=== PATIENT | female | born 1990 | race Hispanic/Latino ===

== ENCOUNTER 2021-06-24 18:23 | Emergency (ER) | payer OTHER ==
--- OUTSIDE RECORDS SUMMARY | 2021-06-24 18:27 | XMS REPORT | Continuity of Care Document ---
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 CELL HGB CONCETRATION 33.9 gram/dL 33.0-36.0 N (test code = MCHC) RED CELL DISTRIBUTION WIDTH 13.2 % 11.6-16.2 N (test code = RDW) PLATELET COUNT (test code = 293 K/mm3 150-450 N PLT) MEAN PLATELET VOLUME (test code 9.9 fL 6.7-11.0 N = MPV) - XR CHEST 1 [id number] 02:48:00 [facility])Name: KATHLEEN SCHAFER : 1990 Sex: F FAX: Josh Baugh [phone] [place]: B St: REG Name: KATHLEEN SCHAFER [facility] : 1990 Age/S: 29/F [address] [facility] Unit #: [id number] Loc: [place] [address] Phys: Josh Hameed MD Acct: [id number] Dis Date: Status: REG ER PHONE #: [phone] Exam Date: 02/29/2020 0236 FAX #: [phone] Reason: CHEST PAIN EXAMS: CPT CODE: [id number] XR CHEST 1V 45743 EXAM: - XR CHEST 1 V HISTORY: Chest pain. COMPARISON: March 07, 2019. FINDINGS: Single AP view of the chest is provided. Heart size and vascularity are within normal limits. There is no evidence of a focal consolidation. There is no pleural effusion or pneumothorax. There is no definite acute osseous abnormality. IMPRESSION: Noradiographic evidence of acute cardiopulmonary process. at 0248 Reported and signed by: Ludin Levin MD CC: Josh Hameed MD Technologist: RT [facility] Date/Time/By: 02/29/2020 (5282) : By: [email or web address] Orig Print D/T: S: 02/29/2020 (8218) PAGE 1 Signed ReportSTREPTOCOCCUS PCR [id number] 03:21:00 Test Item Value Reference Range Interpretation Comments STREPTOCOCCUS DYSGALACTIAE NEGATIVE FOR G/C NEGATIVE (test code = STREPGC) STREPA MOLECULAR (test NEGATIVE FOR GRP A NEGATIVE code = STREPAMOL) - XR CHEST 2 [id number] 23:32:00 FAX: Susy Coto [phone] [place]: St: REG Name: KATHLEEN SCHAFER [facility] : 1990 Age/S: 28/F [address] [facility] Unit#: [id number] Loc: [place] [address] Phys: Susy Madrid MD Acct: [id number] Dis Date: Status: REG ER PHONE #: [phone] Exam Date: 03/07/2019 2303 FAX #: [phone] Reason: cough EXAMS: CPT CODE: [id number] XR CHEST 2 V 12194 AFTER HOURS SERVICE ON: 03/07/2019 11:32 PM Chest, PA and Lateral Location Code M12 History: cough Findings: There are no infiltrates. There are no pleural effusions. There is no pneumothorax. Cardiac silhouette and mediastinum appear within normal limits. Impression: No active pulmonary findings. at 9252 Reported and signed by: Lissa Matias M.D. CC: Susy Madrid DMD Technologist: Karen Javier Trnscrd Date/Time/By: 03/07/2019 (3535) : By: [email or web address] Orig Print D/T: S: 03/07/2019 (6851) PAGE 1 Signed Report
[2021-06-24] MEDS ORDERED: ONDANSETRON 4 MG/2 ML VIAL ONE (21:27)
[2021-06-24] MEDS ORDERED: MORPHINE 4 MG/ML SYR ONE (21:27)
[2021-06-24 21:30] LABS: Urine Blood Negative (Negative); Urine Glucose Negative (Negative); Urine Protein Negative (Negative); Urine Specific Gravity 1.025 (1.005-1.030)
[2021-06-24 21:55] LABS: Absolute Lymphocytes (CBC) 4.1 K/uL (0.7-4.9); Hematocrit 43.2 % (36.0-45.0); Lymphocytes % 37.4 % (15.3-44.8); MPV 7.4 fL (7.6-11.3); RBC Red Blood Cell Count 4.71 M/uL (3.86-4.86)
[2021-06-24 22:03] LABS: Urine Specific Gravity/Preg 1.025 (1.005-1.030)
[2021-06-24 22:08] LABS: Potassium 3.6 mmol/L (3.5-5.1)
[2021-06-24 22:10] LABS: Urine Bacteria 20-50 /HPF (<20)
[2021-06-24 22:11] LABS: Urine Amorphous Sediment 1+ /HPF (NONE SEEN); Urine Urothelial Cells <5 /HPF (NONE SEEN)
[2021-06-24 22:12] LABS: Urine RBC <5 /HPF (NONE SEEN)
--- NOTE | 2021-06-24 22:31 | ER ---
Nurse's Notes [facility] Name: Shivani Mai Age: 30 yrs Sex: Female : 1990 Arrival Date: 06/24/2021 Time: 18:29 Bed 30 Private MD: Diagnosis: UTI/ Urinary tract infection, site not specified Presentation: 06/24 18:47 Chief complaint: Patient states: LLQ pain, pt reports that she is currently seeing PATROL GUARD for abnormal vaginal bleeding and pelvic pain, recently had MRI, US and biopsy, pain is worse today, states" I just can't take it. It's making me nauseous..". Coronavirus screen: Vaccine status: Patient reports receiving the 1st dose of the Covid vaccine. Ebola Screen: No symptoms or risks identified at this time. Initial Sepsis Screen: Does the patient meet any 2 criteria? No. Patient's initial sepsis screen is negative. Does the patient have a suspected source of infection? No. Patient's initial sepsis screen is negative. Risk Assessment: Do you want to hurt yourself or someone else? Patient reports no desire to harm self or others. Onset of symptoms was June 24, 2021. 18:47 Method Of Arrival: Ambulatory 18:47 Acuity: CAROLYN 3 ph Triage Assessment: 18:50 General: Appears in no apparent distress. uncomfortable, Behavior is cooperative, ph appropriate for age. Pain: Complains of pain in left lower quadrant. Historical: - Allergies: 18:50 No Known Allergies; ph - PSHx: 18:50 Cholecystectomy; section; Appendectomy; tubal ligation; ph - Immunization history:: Adult Immunizations unknown. - Social history:: Smoking status: Patient denies any tobacco usage or history of. Screenin:04 Abuse screen: Denies threats or abuse. Nutritional screening: No deficits noted. bb Tuberculosis screening: No symptoms or risk factors identified. Fall Risk None identified. Assessment: 21:04 General: Appears in no apparent distress. uncomfortable, Behavior is calm, cooperative. bb Pain: Complains of pain in abdomen Pain currently is 10 out of 10 on a pain scale. Neuro: Level of Consciousness is awake, alert, obeys commands, Oriented to person, place, time, situation. Cardiovascular: Capillary refill < 3 seconds Patient's skin is warm and dry. Respiratory: Respiratory effort is even, unlabored, Respiratory pattern is regular. GI: Abdomen is round Reports lower abdominal pain. Derm: Skin is pink, warm \\T\\ dry. 23:34 Reassessment: Patient is alert, oriented x 3, equal unlabored respirations, skin bb warm/dry/pink. pain is now 3/10 pt verbalized understanding of and agrees to plan of care discharge instructions given pt ambulated with steady gait to exit Patient states feeling better. Patient states symptoms have improved. Vital Signs: 18:51 BP 124 / 94; Pulse 102; Resp 18; Temp 97.5; Pulse Ox 99% on R/A; Weight 81.65 kg; ph Height 5 ft. 2 in. (157.48 cm); 21:04 BP 129 / 92; Pulse 103; Resp 16 S; Pulse Ox 100% on R/A; Pain 10/10; bb 23:35 BP 112 / 86; Pulse 93; Resp 16 S; Pulse Ox 100% on R/A; Pain 3/10; bb 18:51 Body Mass Index 32.92 (81.65 kg, 157.48 cm) ph ED Course: 18:29 Patient arrived in ED. ds1 18:50 Triage completed. ph 18:51 Arm band placed on Patient placed in waiting room, Patient notified of wait time. ph 21:04 Patient has correct armband on for positive identification. bb 21:06 Alexy Yen, BENJAMIN is PHCP. pm1 21:06 Sang Rocha MD is Attending Physician. pm1 21:33 Missed attempt(s): 20 gauge in right antecubital area. Bleeding controlled, band aid bb applied, catheter tip intact. 21:33 Initial lab(s) drawn, by al, sent to lab. Urine collected: clean catch specimen, clear. bb 21:35 Inserted saline lock: 20 gauge in left antecubital area, using aseptic technique. bb 21:39 Meron Walter, GROVER is Primary Nurse. bb 23:35 No provider procedures requiring assistance completed. IV discontinued, intact, bb bleeding controlled, No redness/swelling at site. Pressure dressing applied. Administered Medications: 21:35 Drug: morphine 4 mg {Note: RASS 0.} Route: IVP; Site: left antecubital; bb 22:30 Follow up: Response: No adverse reaction; Pain is decreased; RASS: Alert and Calm (0); bb RASS 0 21:38 Drug: Zofran (Ondansetron) 4 mg Route: IVP; Site: left antecubital; bb 22:30 Follow up: Response: No adverse reaction bb 23:25 Drug: Rocephin (cefTRIAXone) 1 grams Route: IV; Rate: calculated rate; Site: left antecubital; 23:38 Follow up: IV Status: Completed infusion bb Intake: Outcome: 22:30 Discharge ordered by MD. pm1 23:35 Discharged to home ambulatory. bb 23:35 Condition: stable 23:35 Discharge instructions given to patient, Instructed on discharge instructions, follow up and referral plans. no driving heavy equipment, medication usage, Demonstrated understanding of instructions, follow-up care, medications, Prescriptions given X 2. 23:38 Patient left the ED. bb Signatures: Darline Capps ds1 Meron Walter RN RN Lexi Loya RN RN ph Marinas, Patrick, BENJAMIN VISUAL MERCHANDISING SPECIALIST pm1
--- NOTE | 2021-06-24 22:31 | EDPHYS ---
Physician Documentation [facility] Name: Shivani Mai Age: 30 yrs Sex: Female : 1990 Arrival Date: 06/24/2021 Time: 18:29 Bed 30 Private MD: ED Physician Sang Rocha HPI: 06/24 21:16 This 30 yrs old Female presents to ER via Ambulatory with complaints of pm1 Ovarian Pain/Pelvic Pain. 21:16 The patient presents with pelvic pain. pm1 21:16 Onset: The symptoms/episode began/occurred last year. Modifying factors: The symptoms pm1 are alleviated by nothing, the symptoms are aggravated by nothing. Associated signs and symptoms: Pertinent negatives: diarrhea, dysuria, fever, nausea, vomiting. Severity of symptoms: in the emergency department the symptoms are actually worse. The patient has been recently seen by a physician: an senior manager mergers & acquisitions specialist, with similar presenting complaints, an ultrasound was done, and a MRI was done, biopsy. Historical: - Allergies: 18:50 No Known Allergies; ph - PSHx: 18:50 Cholecystectomy; section; Appendectomy; tubal ligation; ph - Immunization history:: Adult Immunizations unknown. - Social history:: Smoking status: Patient denies any tobacco usage or history of. ROS: 21:16 Positive for flank pain, Negative for burning with urination. pm1 21:16 Constitutional: Negative for fever, chills, and weight loss, Cardiovascular: Negative for chest pain, palpitations, and edema, Respiratory: Negative for shortness of breath, cough, wheezing, and pleuritic chest pain. 21:16 Back: Negative for injury and pain, : Negative for injury, bleeding, discharge, and swelling, MS/Extremity: Negative for injury and deformity, Skin: Negative for injury, rash, and discoloration, Neuro: Negative for headache, weakness, numbness, tingling, and seizure. 21:16 Abdomen/GI: Positive for abdominal pain, of the suprapubic area. 21:16 All other systems are negative. Exam: 21:16 Constitutional: This is a well developed, well nourished patient who is awake, alert, pm1 and in no acute distress. Head/Face: Normocephalic, atraumatic. 21:16 Back: No spinal tenderness. No costovertebral tenderness. Full range of motion. Skin: Warm, dry with normal turgor. Normal color with no rashes, no lesions, and no evidence of cellulitis. MS/ Extremity: Pulses equal, no cyanosis. Neurovascular intact. Full, normal range of motion. 21:16 Cardiovascular: Exam negative for acute changes, Rate: normal, Rhythm: regular, Pulses: no pulse deficits are appreciated, Heart sounds: normal. 21:16 Respiratory: Exam negative for acute changes, respiratory distress, shortness of breath, Breath sounds: are clear throughout. 21:16 Abdomen/GI: Inspection: abdomen appears normal, Palpation: soft, in all quadrants, mild abdominal tenderness, in the suprapubic area. 21:16 Neuro: Exam negative for acute changes, Orientation: is normal, Mentation: is normal, Motor: is normal, moves all fours. Vital Signs: 18:51 BP 124 / 94; Pulse 102; Resp 18; Temp 97.5; Pulse Ox 99% on R/A; Weight 81.65 kg; ph Height 5 ft. 2 in. (157.48 cm); 21:04 BP 129 / 92; Pulse 103; Resp 16 S; Pulse Ox 100% on R/A; Pain 10/10; bb 23:35 BP 112 / 86; Pulse 93; Resp 16 S; Pulse Ox 100% on R/A; Pain 3/10; bb 18:51 Body Mass Index 32.92 (81.65 kg, 157.48 cm) ph MDM: 21:15 Patient medically screened. pm1 21:15 Refusal of service: The patient/guardian displays adequate decision making capability pm1 and despite a detailed discussion of alternatives, benefits, risks, and consequences refuses: Pelvic Ultrasound. 22:29 Data reviewed: vital signs. Data interpreted: Pulse oximetry: on room air is 100 %. pm1 Interpretation: normal. Counseling: I had a detailed discussion with the patient and/or guardian regarding: the historical points, exam findings, and any diagnostic results supporting the discharge/admit diagnosis, lab results, the need for outpatient follow up, to return to the emergency department if symptoms worsen or persist or if there are any questions or concerns that arise at home. 23:36 ED course: Informed that patient the heavy line technician mistakenly took her for a CT scan when I pm1 did not order it. Asked her if she would still like to have the CT read by the radiologist since it was performed, but refused because she recently had a MRI from her computer system technician. 06/24 21:16 Order name: CBC with Diff; Complete Time: 22:19 pm1 06/24 21:16 Order name: BMP; Complete Time: 22:19 pm1 06/24 21:16 Order name: Urine Microscopic Only; Complete Time: 22:19 pm1 06/24 21:30 Order name: Urine Dipstick-Ancillary; Complete Time: 21:40 EDMS 06/24 21:32 Order name: Urine --Ancillary (enter results); Complete Time: 22:19 mw2 06/24 22:14 Order name: Urine Culture EDMS 06/24 21:16 Order name: Urine Dipstick-Ancillary (obtain specimen); Complete Time: 21:31 pm1 06/24 21:16 Order name: Urine Test (obtain specimen); Complete Time: 21:31 pm1 06/24 21:16 Order name: IV Saline Lock; Complete Time: 21:41 pm1 Administered Medications: 21:35 Drug: morphine 4 mg {Note: RASS 0.} Route: IVP; Site: left antecubital; bb 22:30 Follow up: Response: No adverse reaction; Pain is decreased; RASS: Alert and Calm (0); bb RASS 0 21:38 Drug: Zofran (Ondansetron) 4 mg Route: IVP; Site: left antecubital; bb 22:30 Follow up: Response: No adverse reaction bb 23:25 Drug: Rocephin (cefTRIAXone) 1 grams Route: IV; Rate: calculated rate; Site: left bb antecubital; 23:38 Follow up: IV Status: Completed infusion bb Disposition Summary: 06/24/21 22:30 Discharge Ordered Location: Home pm1 Problem: new pm1 Symptoms: have improved pm1 Condition: Stable pm1 Diagnosis - UTI/ Urinary tract infection, site not specified pm1 Followup: pm1 - With: Emergency Department - When: As needed - Reason: Worsening of condition Followup: pm1 - With: Private Physician - When: 2 - 3 days - Reason: Recheck today's complaints, Continuance of care, Re-evaluation by your physician Discharge Instructions: - Discharge Summary Sheet pm1 - Urinary Tract Infection, Adult pm1 Forms: - Medication Reconciliation Form pm1 - Thank You Letter pm1 - Antibiotic Education pm1 - Prescription Opioid Use pm1 Prescriptions: - Bactrim DS 800-160 mg Oral Tablet - take 1 tablet by ORAL route every 12 hours for 10 days; 20 tablet; Refills: 0, pm1 Product Selection Permitted - Tylenol-Codeine #3 300 mg-30 mg Oral - take 2 tablet by ORAL route every 6 hours As needed; 20 tablet; Refills: 0, pm1 Product Selection Permitted Addendum: 06/27/2021 07:17 Co-signature as Attending Physician, Sang Rocha MD I agree with the assessment and c norman plan of care. Signatures: Dispatcher [employer] EDSang Coombs MD MD cha Ballard, Brenda RN RN Lexi Loya RN RN Alexy Galicia, BENJAMIN OXYGEN EQUIPMENT TECHNICIAN pm1
[2021-06-24] MEDS ORDERED: NA CHLORIDE 0.9% 50 ML ONE (23:02)
[2021-06-24] MEDS ORDERED: CEFTRIAXONE 1000 MG/VIAL ONE (23:02)
[2021-06-25 01:57] VITALS: TEMP 97.5
[2021-06-25 01:58] VITALS: O2SAT 100
[2021-06-25 01:59] VITALS: BP 112/86
== END 2021-06-24 23:38 | disposition home or self-care (01) ==
LOC: ER 18:23
DX: N39.0 Urinary tract infection, site not specified (principal)
CPT/HCPCS: 87088; 85025; 87086; 80048; 36415; 81025; 96375; 96374; 99284; J2405; 81003; 81015

== ENCOUNTER 2021-07-06 20:41 | Emergency (ER) | payer OTHER ==
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
[2021-07-06] MEDS ORDERED: MORPHINE 4 MG/ML SYR ONE (23:22)
[2021-07-06] MEDS ORDERED: ONDANSETRON 4 MG (ODT) TAB ONE (23:23)
--- NOTE | 2021-07-06 23:31 | EDPHYS ---
Physician Documentation [facility] Name: Shivani Mai Age: 30 yrs Sex: Female : 1990 Arrival Date: 07/06/2021 Time: 20:44 Bed 7 Private MD: ED Physician Dada Kyle HPI: 07/06 21:04 This 30 yrs old Female presents to ER via Ambulatory with complaints of jmm Abdominal Pain, Back Pain. 21:04 The patient presents with abdominal pain. Onset: The symptoms/episode began/occurred jmm gradually. The symptoms radiate to Associated signs and symptoms: Pertinent negatives: fever. Is a 30-year-old female with history of ovarian mass that presents emerged part with complaints of ongoing pelvic pain. Patient states that she is uncomfortable secondary to this mass. Patient's PCP attempted to call him pain medication but was unable to. Character pain is remained the same.. ORTHOPEDIC PODIATRIST: 21:08 LMP N/A - Irregular menses tw5 Historical: - Allergies: 21:08 No Known Allergies; tw5 - PSHx: 21:08 Appendectomy; tubal ligation; section; Cholecystectomy; tw5 - Immunization history:: Flu vaccine is not up to date. - Social history:: Smoking status: Patient/guardian denies using tobacco, the patient reports quitting approximately 1.5 years ago. ROS: 21:04 Constitutional: Negative for fever, chills, and weight loss, Cardiovascular: Negative jmm for chest pain, palpitations, and edema, Respiratory: Negative for shortness of breath, cough, wheezing, and pleuritic chest pain. 21:04 Abdomen/GI: Positive for abdominal pain. 21:04 All other systems are negative. Exam: 21:04 Constitutional: This is a well developed, well nourished patient who is awake, alert, jmm and in no acute distress. Head/Face: atraumatic. Eyes: EOMI, no conjunctival erythema appreciated ENT: Moist Mucus Membranes Neck: Trachea midline, Supple Chest/axilla: Normal chest wall appearance and motion. Cardiovascular: Regular rate and rhythm. No edema appreciated Respiratory: Normal respirations, no respiratory distress appreciated Abdomen/GI: Non distended, soft Back: Normal ROM Skin: General appearance color normal MS/ Extremity: Moves all extremities, no obvious deformities appreciated, no edema noted to the lower extremities Neuro: Awake and alert Psych: Behavior is normal, Mood is normal, Patient is cooperative and pleasant Vital Signs: 21:06 BP 124 / 84; Pulse 102; Resp 18; Temp 98.1; Pulse Ox 97% on R/A; Weight 81.65 kg; tw5 Height 5 ft. 2 in. (157.48 cm); Pain 10/10; 23:25 BP 133 / 93; Resp 18; Pulse Ox 98% on R/A; Pain 10/10; tw5 21:06 Body Mass Index 32.92 (81.65 kg, 157.48 cm) tw5 MDM: 21:04 Patient medically screened. [facility] 23:30 Data reviewed: vital signs, nurses notes. Counseling: I had a detailed discussion with [facility] the patient and/or guardian regarding: the historical points, exam findings, and any diagnostic results supporting the discharge/admit diagnosis, radiology results, the need for outpatient follow up, to return to the emergency department if symptoms worsen or persist or if there are any questions or concerns that arise at home. ED course: Ultrasound revealed blood flow to both ovaries. I do not currently suspect torsion. Patient given follow-up information for gynecologic oncology. Patient otherwise given strict return precautions. Patient history agrees plan of care.. 07/06 21:13 Order name: US Pelvis Complete [facility] 07/06 22:09 Order name: Transvaginal Study Probe EDMS Administered Medications: 23:21 Drug: Zofran (Ondansetron) 4 mg Route: PO; tw5 23:57 Follow up: Response: No adverse reaction as6 23:23 Drug: morphine 4 mg Route: IM; Site: right deltoid; tw5 23:57 Follow up: Response: No adverse reaction; RASS: Alert and Calm (0) as6 Disposition: 07/07 03:56 Co-signature as Attending Physician, Dada Kyle MD. rn Disposition Summary: 07/06/21 23:31 Discharge Ordered Location: Home [facility] Condition: Stable [facility] Diagnosis - Pelvic and perineal pain [facility] Followup: [facility] - With: Neida Yoo MD - When: 2 - 3 days - Reason: Recheck today's complaints, Continuance of care, Re-evaluation by your physician Discharge Instructions: - Discharge Summary Sheet [facility] - Pelvic Pain, Female [facility] Forms: - Medication Reconciliation Form [facility] - Thank You Letter jmm - Antibiotic Education jmm - Prescription Opioid Use [facility] Prescriptions: - Tylenol-Codeine #3 300 mg-30 mg Oral - take 1 tablet by ORAL route every 4-6 hours; 20 tablet; Refills: 0, Product [facility] Selection Permitted Signatures: Dispatcher [employer] Charlie Garnica PA PA jmm Nieto, Roman, MD MD rn Wood, Tiffany tw5 Cleve Chapman RN as6
--- NOTE | 2021-07-06 23:31 | ER ---
Nurse's Notes [facility] Name: Shivani Mai Age: 30 yrs Sex: Female : 1990 Arrival Date: 07/06/2021 Time: 20:44 Bed 7 Private MD: Diagnosis: Pelvic and perineal pain Presentation: 07/06 21:06 Chief complaint: Patient states: "I was diagnosed with an ovarian mass, my OBGYN is not tw5 in town, but she needs to refer me to an oncologist. I wanted to see if you could help me sooner.". Coronavirus screen: Vaccine status: Patient reports receiving the 2nd dose of the covid vaccine. Living Proof. Ebola Screen: Patient negative for fever greater than or equal to 101.5 degrees Fahrenheit, and additional compatible Ebola Virus Disease symptoms Patient denies exposure to infectious person. Patient denies travel to an Ebola-affected area in the 21 days before illness onset. Initial Sepsis Screen: Does the patient meet any 2 criteria? HR > 90 bpm. No. Patient's initial sepsis screen is negative. Does the patient have a suspected source of infection? Yes: Acute abdominal pain. Risk Assessment: Do you want to hurt yourself or someone else? Patient reports no desire to harm self or others. Onset of symptoms is unknown. 21:06 Acuity: CAROLYN 3 tw5 21:06 Method Of Arrival: Ambulatory tw5 Triage Assessment: 21:08 General: Appears uncomfortable, obese, Behavior is calm, cooperative, appropriate for tw5 age. Pain: Complains of pain in left lower quadrant Pain currently is 10 out of 10 on a pain scale. GI: Reports nausea. 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 - Social history:: Smoking status: Patient/guardian denies using tobacco, the patient reports quitting approximately 1.5 years ago. Screenin:56 Abuse screen: Denies threats or abuse. Denies injuries from another. Nutritional as6 screening: No deficits noted. Tuberculosis screening: No symptoms or risk factors identified. Fall Risk None identified. Assessment: 23:56 Reassessment: Patient appears in no apparent distress at this time. General: see triage as6 assessment . Vital Signs: 21:06 BP 124 / 84; Pulse 102; Resp 18; Temp 98.1; Pulse Ox 97% on R/A; Weight 81.65 kg; tw5 Height 5 ft. 2 in. (157.48 cm); Pain 10/10; 23:25 BP 133 / 93; Resp 18; Pulse Ox 98% on R/A; Pain 10/10; tw5 21:06 Body Mass Index 32.92 (81.65 kg, 157.48 cm) tw5 ED Course: 20:44 Patient arrived in ED. bp1 20:49 Charlie Santana PA is PHCP. jmm 20:49 Dada Kyle MD is Attending Physician. jmm 21:08 Triage completed. tw5 21:08 Arm band placed on right wrist. tw5 21:10 Patient notified of wait time. tw5 22:22 US Pelvis Complete In Process Unspecified. EDMS 22:22 Transvaginal Study Probe In Process Unspecified. EDMS 22:27 Cleve Chapman, RN is Primary Nurse. as6 23:31 Neida Yoo MD is Referral Physician. jmm 23:56 Bed in low position. Call light in reach. Side rails up X 1. Adult w/ patient. Pulse ox as6 on. NIBP on. 23:57 No provider procedures requiring assistance completed. Patient did not have IV access as6 during this emergency room visit. Administered Medications: 23:21 Drug: Zofran (Ondansetron) 4 mg Route: PO; tw5 23:57 Follow up: Response: No adverse reaction as6 23:23 Drug: morphine 4 mg Route: IM; Site: right deltoid; tw5 23:57 Follow up: Response: No adverse reaction; RASS: Alert and Calm (0) as6 Outcome: 23:31 Discharge ordered by . m 23:57 Discharged to home ambulatory, with significant other. as6 23:57 Condition: stable 23:57 Discharge instructions given to patient, significant other, Instructed on discharge instructions, follow up and referral plans. medication usage, Demonstrated understanding of instructions, follow-up care, medications, Prescriptions given X 1. 23:57 Patient left the ED. as6 Signatures: Dispatcher [employer] EDMS Azaelkail, Charlie, PA PA jmm Paniauga, Aminah bp1 Wood, Geovanna tw5 Clvee Chapman, RN RN as6
[2021-07-07 01:05] VITALS: TEMP 98.1
[2021-07-07 01:06] VITALS: BP 133/93; O2SAT 98
--- NOTE | 2021-07-08 11:26 | RAD REPORT ---
EXAM DESCRIPTION: US - Pelvis Complete - 07/06/2021 10:20 pm CLINICAL HISTORY: 30 years Female PAIN LT SIDE TECHNIQUE: Transabdominal and transvaginal ultrasound with color doppler and spectral imaging analys is. COMPARISON: None. FINDINGS: Uterus: Measures 8.8 x 4.1 x 5.2 cm, with 11 mm endometrial stripe. No uterine masses. Right ovary: Measures 2.8 x 1.5 x 1.8 cm. Normal vascular flow on Doppler. Left ovary: Hypoechoic 4.3 x 4.3 x 4.9 cm mass with internal vascularity. Doppler not performed. Fluid: None. IMPRESSION: A 4.9 cm hypoechoic mass in the left ovary with internal vascularity. Recommend contrast -enhanced MRI for further evaluation. Electronically signed by: Kwesi Toney MD 07/06/2021 11:05 PM CDT Due to temporary technical issues with the PACS/Fluency reporting system, reports are being signed by the in house radiologists without review as a courtesy to insure prompt reporting. The interpreting radiologist is fully responsible for the content of the report.
--- NOTE | 2021-07-08 11:29 | RAD REPORT ---
EXAM DESCRIPTION: US - Transvaginal Study Probe - 07/06/2021 10:20 pm CLINICAL HISTORY: 30 years Female PAIN LT SIDE TECHNIQUE: Transabdominal and transvaginal ultrasound with color doppler and spectral imaging analys is. COMPARISON: None. FINDINGS: Uterus: Measures 8.8 x 4.1 x 5.2 cm, with 11 mm endometrial stripe. No uterine masses. Right ovary: Measures 2.8 x 1.5 x 1.8 cm. Normal vascular flow on Doppler. Left ovary: Hypoechoic 4.3 x 4.3 x 4.9 cm mass with internal vascularity. Doppler not performed. Fluid: None. IMPRESSION: A 4.9 cm hypoechoic mass in the left ovary with internal vascularity. Recommend contrast -enhanced MRI for further evaluation. Electronically signed by: Kwesi Toney MD 07/06/2021 11:05 PM CDT Due to temporary technical issues with the PACS/Fluency reporting system, reports are being signed by the in house radiologists without review as a courtesy to insure prompt reporting. The interpreting radiologist is fully responsible for the content of the report.
== END 2021-07-06 23:57 | disposition home or self-care (01) ==
LOC: ER 20:41
DX: R10.2 Pelvic and perineal pain (principal)
CPT/HCPCS: 76830; 76856; 96372; 99284